=== PATIENT | male | born 1945 | race Caucasian/White ===

== ENCOUNTER → 2016-12-09 | Outpatient (CLI) | payer MEDICARE, MEDICAID ==
[~2016-12-09] MED LIST: BISOPROLOL5 MG PO; CYCLOBENZAPRINE10 M3 PO; DICLOFENAC SOD75 MG PO; ESCITALOPRAM10 MG PO; FLEXERIL10 MG PO; HYDROCHLOROTHIA25 M1 PO; LIPITOR20 M1 PO; LISINOPRIL HCTZ1 TAB PO; MELOXICAM15 MG PO; NAPROXEN SODIU500 MG PO; PERCOGESIC1 TAB PO; PREDNICOT20 MG PO; RANITIDINE HCL300 M1 PO; RANITIDINE300 MG PO; XANAX 1MG TABLET1 MG PO
== END ==
LOC: LAB 11:05
DX: I25.700 Atherosclerosis of coronary artery bypass graft(s), unspecified, with unstable angina pectoris (principal); E78.5 Hyperlipidemia, unspecified

== ENCOUNTER → 2017-03-16 | Outpatient (CLI) | payer MEDICARE, MEDICAID ==
--- NOTE | 2017-03-16 22:45 | RADIOLOGY REPORT PS360 ---
KNEE-3 VIEWS-RT HISTORY: Right knee pain INTERNAL DERANGEMENT OF RIGHT KNEE ORDERING PHYSICIAN: Bhaskar Parham MD PATIENT AGE: 71 years COMPARISON: None FINDINGS: Moderate osteoarthritic changes are present involving all 3 compartments. Chondrocalcinosis involves the medial and lateral meniscus. Knee joint effusion is present in the suprapatellar region. No acute fracture or dislocation. No lytic or blastic change. 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
== END ==
LOC: RAD 16:36
DX: M23.91 Unspecified internal derangement of right knee (principal)

== ENCOUNTER → 2017-07-23 | Outpatient (CLI) | payer MEDICARE, MEDICAID | LOC: RAD 13:53 | DX: M23.91 Unspecified internal derangement of right knee (principal) ==

== ENCOUNTER → 2017-08-06 | Outpatient (CLI) | payer MEDICARE, MEDICAID ==
--- NOTE | 2017-08-09 09:52 | RADIOLOGY REPORT PS360 ---
MRI-LOW EXT ANY JOINT W/O-RT HISTORY: Pain and swelling along medial side of the knee with limited range of motion, instability INTERNRAL DERANGEMENT OF RIGHT KNEE ORDERING PHYSICIAN: Bhaskar Parham MD PATIENT AGE: 71 years COMPARISON: Radiograph 03/16/2017 TECHNIQUE: Standard multiplanar multiecho sequences are performed without contrast. FINDINGS: The cruciate ligaments, collateral ligaments, patellar tendon, and quadriceps tendon appear intact. There is some increased T1 and T2 signal involving the distal aspect of the quadriceps tendon consistent with tendinopathy/tendinosis. There is a longitudinal tear involving the posterior horn of the medial meniscus. This is nondisplaced and is ministration on 2 excessive sagittal images. The medial meniscus is somewhat extruded medially. There are moderate to severe osteoarthritic changes involving all 3 compartments. There is a prominent knee joint effusion in the suprapatellar region with some internal septations. Complex Rich's cyst is present measuring 4.3 cm cephalad to caudad and 1.6 cm AP. Severe osteoarthritic changes are present at the patellofemoral joint. There is thinning of the patellar cartilage. No evidence of avascular necrosis. No acute fracture or dislocation. IMPRESSION: 1. Nondisplaced longitudinal tear involves posterior horn of the medial meniscus. 2. Severe tricompartmental osteoarthritic changes with moderate sized complex knee joint effusion in the suprapatellar region along with complex Rich's cyst with internal septations
== END ==
LOC: RAD 13:14
DX: M23.91 Unspecified internal derangement of right knee (principal)